=== PATIENT | female | born 1965 | race Caucasian/White ===

== ENCOUNTER 2017-03-06 13:41 | Emergency (ER) | payer BC, OTHER ==
[~2017-03-06] VITALS: Ht 157.5 cm; Wt 88.5 kg
[2017-03-06 14:35] LABS: BASOPHILS # (AUTO) 0.1 (0.0-0.1); BASOPHILS % 0.8 % (0.0-1.0); EOSINOPHILS # (AUTO) 0.3 (0.0-0.4); EOSINOPHILS % 4.2 % (0.0-6.0); HEMATOCRIT 41.4 % (34.2-44.1); HEMOGLOBIN 13.6 g/dL (12.0-16.0); LYMPHOCYTES # (AUTO) 1.5 (1.0-3.2); LYMPHOCYTES % 23.8 % (18.0-39.1); MEAN CORPUSCULAR HEMOGLOBIN 31.4 pg (28-32); MEAN CORPUSCULAR HGB CONC 32.9 g/dL (31-35); MEAN CORPUSCULAR VOLUME 95.6 fL (81-99); MONOCYTES # (AUTO) 0.6 (0.2-0.8); MONOCYTES % 9.8 % (4.4-11.3); NEUTROPHILS # (AUTO) 3.7 (2.1-6.9); NEUTROPHILS % 60.9 % (38.7-80.0); PLATELET COUNT 195 x10e3/uL (140-360); RED BLOOD COUNT 4.33 x10e6/uL (3.6-5.1); RED CELL DISTRIBUTION WIDTH 14.2 % (11.7-14.4)
[2017-03-06 14:39] LABS: INR 0.91; PROTHROMBIN TIME 12.7 seconds (11.9-14.5)
[2017-03-06 14:40] LABS: PARTIAL THROMBOPLASTIN TIME 28.3 seconds (23.8-35.5)
[2017-03-06 14:49] LABS: ALBUMIN/GLOBULIN RATIO 1.1 (0.8-2.0); ANION GAP 10.8 mmol/L (8-16); CALCIUM 9.9 mg/dL (8.4-10.2); CREATININE, SERUM 1.07 mg/dL (0.57-1.11); POTASSIUM 3.8 mmol/L (3.5-5.1)
[2017-03-06 14:55] LABS: CREATINE KINASE MB 0.9 ng/mL (0.00-5.00); TROPONIN I 0.007 ng/mL (0-0.300)
[2017-03-06 15:03] LABS: BILIRUBIN,URINE NEGATIVE (NEGATIVE); CLARITY,URINE CLEAR (CLEAR); COLOR,URINE YELLOW (YELLOW); KETONES,URINE NEGATIVE (NEGATIVE); LEUKOCYTE ESTERASE ,URINE NEGATIVE (NEGATIVE); NITRITE,URINE NEGATIVE (NEGATIVE); PROTEIN,URINE DIPSTICK NEGATIVE (NEGATIVE); URINE UROBILINOGEN 0.2 mg/dL (0.2 - 1)
[2017-03-06 15:09] LABS: RBC,URINE 0-5 /HPF (0-5); WBC,URINE (MAN) 0-5 /HPF (0-5)
[2017-03-06 15:10] LABS: EPITHELIAL CELLS,URINE MODERATE /LPF; MUCUS,URINE MODERATE (RARE)
--- NOTE | 2017-03-06 15:41 | Diagnostic Imaging Report ---
Portable chest x-ray CPT code 50657 INDICATION: Pain and dizziness COMPARISON: 12/06/2009 FINDINGS: Frontal view of the chest obtained at 1445 hours. The cardiac silhouette is top normal in size. The pulmonary vascular marking are normal. The lungs demonstrate stable calcified granuloma in the left lung base. The lungs are hyperinflated. No consolidation. The costophrenic angles are sharp. There is no pneumothorax. The osseous structures are stable. IMPRESSION: 1. Pulmonary hyperinflation suggestive of small airways disease. 2. No acute cardiopulmonary process. Signed by: Dr. Jamal Weber MD on 03/06/2017 3:38 PM
[2017-03-06 17:47] VITALS: BP 125/70
== END 2017-03-06 17:55 | disposition home or self-care (01) ==
LOC: ER 13:41
DX: R07.89 Other chest pain (principal)
CPT/HCPCS: 36415; 71010; 80053; 81001; 82550; 82553; 83880; 84484; 85025; 85610; 85730; 87086; 93005; 99283

== ENCOUNTER 2017-04-26 01:07 | Emergency (ER) | payer BC ==
[~2017-04-26] VITALS: Ht 157.5 cm; Wt 88.5 kg
--- OUTSIDE RECORDS SUMMARY | 2017-04-26 01:09 | XMS REPORT ---
Author Author [facility] Address Unknown Phone Unavailable Care Team Providers Care Phthalic Acid Purifier Name Role Phone KARLO HOWARD Unavailable Unavailable Problems This patient has no known problems. Allergies, Adverse Reactions, Alerts This patient has no known allergies or adverse reactions. Medications This patient has no known medications. Results Test Description Test Time Test Comments Text Results Atomic Results Result Comments CHEST SINGLE (NOT PORTABLE) [address] [address] Patient Name: PRITI GARCIA MR #: [id number] : 1965 Age/Sex: 51/F Req #: [id number] Adm Physician: Ordered by: KARLO HOWARD MD Report #: [id number] Location: ER Room/Bed: Procedure: [id number] DX/CHEST SINGLE (NOT PORTABLE) Exam Date: 03/06/17 Exam Time: 1440 REPORT STATUS: Signed Portable chest x-ray CPT code 16553 INDICATION: Pain and dizziness COMPARISON: 12/06/2009 FINDINGS: Frontal view of the chest obtained at 1445 hours. The cardiac silhouette is top normal in size. The pulmonary vascular marking are normal. The lungs demonstrate stable calcified granuloma in the left lung base. The lungs are hyperinflated. No consolidation. The costophrenic angles are sharp. There is no pneumothorax. The osseous structures are stable. IMPRESSION: 1. Pulmonary hyperinflation suggestive of small airways disease. 2. No acute cardiopulmonary process. Signed by: Dr. Rosy Juarez MD on 03/06/2017 3 :38 PM Dictated By: ROSY JUAREZ MD 1538 Transcribed By: ORION on 03/06/17 1538 COPY TO: KARLO HOWARD MD
[2017-04-26] MEDS ORDERED: SODIUM CHLORIDE 0.9% 1000ML 1,000 ML IV STA (01:46)
[2017-04-26] MEDS ORDERED: PANTOPRAZOLE 40 MG 10ML VIAL IV STA (01:46)
[2017-04-26] MEDS ORDERED: MORPHINE SULFATE 2 MG/ML SYR IV STA ×2 (01:46→05:23)
[2017-04-26] MEDS ORDERED: ONDANSETRON HCL INJ 2 MG/ML VIAL IV STA ×2 (01:46→05:23)
[2017-04-26 01:59] LABS: BASOPHILS # (AUTO) 0.1 (0.0-0.1); BASOPHILS % 0.6 % (0.0-1.0); EOSINOPHILS # (AUTO) 0.3 (0.0-0.4); EOSINOPHILS % 2.9 % (0.0-6.0); HEMATOCRIT 44.8 % (34.2-44.1); HEMOGLOBIN 14.9 g/dL (12.0-16.0); LYMPHOCYTES # (AUTO) 1.6 (1.0-3.2); MEAN CORPUSCULAR HEMOGLOBIN 31.1 pg (28-32); MEAN CORPUSCULAR HGB CONC 33.3 g/dL (31-35); MEAN CORPUSCULAR VOLUME 93.5 fL (81-99); MONOCYTES # (AUTO) 0.7 (0.2-0.8); MONOCYTES % 7.3 % (4.4-11.3); NEUTROPHILS # (AUTO) 7.1 (2.1-6.9); NEUTROPHILS % 72.8 % (38.7-80.0); PLATELET COUNT 244 x10e3/uL (140-360); RED BLOOD COUNT 4.79 x10e6/uL (3.6-5.1)
[2017-04-26 02:08] LABS: INR 3.58; PROTHROMBIN TIME 33.6 seconds (11.9-14.5)
[2017-04-26 02:09] LABS: PARTIAL THROMBOPLASTIN TIME 52.8 seconds (23.8-35.5)
[2017-04-26 02:20] LABS: ALBUMIN 4.3 g/dL (3.5-5.0); ALBUMIN/GLOBULIN RATIO 1.1 (0.8-2.0); ANION GAP 14.3 mmol/L (8-16); CALCIUM 10.2 mg/dL (8.4-10.2); CREATININE, SERUM 0.99 mg/dL (0.57-1.11); POTASSIUM 4.3 mmol/L (3.5-5.1)
[2017-04-26 02:23] LABS: BILIRUBIN,URINE NEGATIVE (NEGATIVE); KETONES,URINE NEGATIVE (NEGATIVE); LEUKOCYTE ESTERASE ,URINE NEGATIVE (NEGATIVE); NITRITE,URINE NEGATIVE (NEGATIVE); URINE UROBILINOGEN 0.2 mg/dL (0.2 - 1)
[2017-04-26 02:24] LABS: CLARITY,URINE SL CLOUDY (CLEAR); COLOR,URINE YELLOW (YELLOW); PROTEIN,URINE DIPSTICK 1+ (NEGATIVE)
[2017-04-26 02:26] LABS: CREATINE KINASE MB 1.9 ng/mL (0-5.0)
[2017-04-26 02:33] LABS: BACTERIA,URINE MODERATE /HPF; EPITHELIAL CELLS,URINE FEW /LPF; RBC,URINE >50 /HPF (0-5)
--- NOTE | 2017-04-26 02:42 | Diagnostic Imaging Report ---
EXAMINATION: CHEST SINGLE (PORTABLE) INDICATION: Abdominal pain. COMPARISON: 03/06/2017 FINDINGS: TUBES and LINES: None. LUNGS: Lungs are well inflated. Calcified granuloma in the left lung base There is no evidence of pneumonia or pulmonary edema. PLEURA: No pleural effusion or pneumothorax. HEART AND MEDIASTINUM: The cardiomediastinal silhouette is unremarkable. BONES AND SOFT TISSUES: No acute osseous lesion. Soft tissues are unremarkable. UPPER ABDOMEN: No free air under the diaphragm. IMPRESSION: No acute thoracic abnormality. Signed by: Dr. Peter Zaman M.D. on 04/26/2017 2:38 AM
--- NOTE | 2017-04-26 04:20 | Diagnostic Imaging Report ---
EXAM: CT Abdomen and Pelvis WITH contrast INDICATION: Right upper quadrant abdominal pain, vomiting, suspected small bowel obstruction. COMPARISON: None. TECHNIQUE: Abdomen and pelvis were scanned utilizing a multidetector helical scanner from the lung base to the pubic symphysis after administration of IV contrast. Coronal and sagittal reformations were obtained. Routine protocol was performed. Scan was performed when during portal venous phase. IV CONTRAST: 100 mL of Isovue-370 ORAL CONTRAST: Water RADIATION DOSE: Total DLP: 712.04 mGy*cm Estimated effective dose: (DLP x 0.015 x size factor) mSv COMPLICATIONS: None FINDINGS: LINES and TUBES: None. LOWER THORAX: Unremarkable HEPATOBILIARY: Focal hypodensity involving the right lobe of the liver is indeterminate. No biliary ductal dilation. GALLBLADDER: No radio-opaque stones or sludge. No wall thickening. SPLEEN: No splenomegaly. PANCREAS: No focal masses or ductal dilatation. ADRENALS: No adrenal nodules KIDNEYS/URETERS: Kidneys enhance symmetrically. No hydronephrosis. Single 1.1 cm left renal angiomyolipoma. 2 mm stone in the inferior renal collecting system of the left kidney. GI TRACT: No abnormal distention, wall thickening, or evidence of bowel obstruction. Appendix is not clearly identified. There is however no fat stranding or adenopathy in the right lower quadrant to suggest appendicitis. PELVIC ORGANS/BLADDER: Unremarkable. LYMPH NODES: No lymphadenopathy. VESSELS: Unremarkable. PERITONEUM / RETROPERITONEUM: No free air or fluid. BONES: Unremarkable. SOFT TISSUES: Unremarkable. IMPRESSION: 1. No evidence of bowel obstruction. 2. Left renal angiomyolipoma measuring 1 cm in diameter. 3. 2 mm stone in the inferior renal collecting system of the left kidney Signed by: Dr. Peter Zaman M.D. on 04/26/2017 4:16 AM
[2017-04-26] MEDS ORDERED: SODIUM CHLORIDE 0.9% 50ML 50 ML ONE (04:21)
[2017-04-26] MEDS ORDERED: IOPAMIDOL 370 MG/ML 200 ML INFUS..BTL INJ ONE (04:22)
[2017-04-26] MEDS ORDERED: CEFTRIAXONE SOD 1 GM VIAL IV STA (05:09)
== END 2017-04-26 06:10 | disposition home or self-care (01) ==
LOC: ER 01:07
DX: N39.0 Urinary tract infection, site not specified (principal); N30.01 Acute cystitis with hematuria; R10.13 Epigastric pain; R10.11 Right upper quadrant pain; I48.91 Unspecified atrial fibrillation; Z79.01 Long term (current) use of anticoagulants; T45.515A Adverse effect of anticoagulants, initial encounter
CPT/HCPCS: 36415; 71045; 74177; 80053; 81001; 82150; 82550; 82553; 83605; 83690; 83735; 84484; 85025; 85610; 85730; 87086; 99284; J0696; J2270; J2405; J7030; Q9967

== ENCOUNTER → 2017-04-28 | Outpatient (CLI) | payer BC ==
[~2017-04-28] MED LIST: REGADENOSON 0.4 MG/5 ML SYR IV ONE
--- NOTE | 2017-05-01 16:59 | Cardiology Report ---
DATE OF STUDY: April 28, 2017 NUCLEAR GATED MYOCARDIAL PERFUSION SCAN USING LEXISCAN This procedure done at [facility] as an outpatient. Nuclear gated myocardial perfusion scan performed as per protocol at the nuclear medicine lab at [facility]. Lexiscan injected 0.4 mg intravenously as stress agent. Myoview injected of 10 mCi for resting protocol, 30 mCi for stress protocol. Left ventricular ejection fraction 60%. No evidence of ischemia or scar noted. Normal study. Job#: [id number]
== END ==
LOC: NM 09:03
PROVIDERS: ATTEND Internal Medicine Cardiovascular Disease
DX: R07.9 Chest pain, unspecified (principal); I48.91 Unspecified atrial fibrillation; R94.31 Abnormal electrocardiogram [ECG] [EKG]
CPT/HCPCS: 78452; 93017; A9502

== ENCOUNTER → 2017-05-30 | Outpatient (CLI) | payer BC ==
[~2017-05-30] MED LIST changes: +IOPAMIDOL 370 MG/ML 200 ML INFUS..BTL INJ ONE; -REGADENOSON 0.4 MG/5 ML SYR IV ONE; +SODIUM CHLORIDE 0.9% 50ML 50 ML ONE
[2017-05-30 09:51] LABS: BLOOD UREA NITROGEN 19 mg/dL (7-26); BUN/CREATININE RATIO 23 (6-25); CREATININE, SERUM 0.83 mg/dL (0.57-1.11); EST GLOMERULAR FILTRATION RATE > 60 ML/MIN (60-)
--- NOTE | 2017-05-30 12:06 | Diagnostic Imaging Report ---
PROCEDURE: CT ABDOMEN \T\ PELVIS W/WO CONTRAST TECHNIQUE: The abdomen and pelvis were scanned utilizing a multidetector helical scanner from the diaphragm to the lesser trochanter before and after the IV administration of 100 cc of Isovue 370. Precontrast, arterial, venous and delayed phases were performed. Coronal and sagittal multiplanar reformations were obtained. COMPARISON: Patients [facility], CT, CT ABDOMEN/PELVIS W, 04/26/2017, 3:12. INDICATIONS: Renal mass FINDINGS: LOWER THORAX: Stable calcified granulomas in bilateral lower lobes (series 7, image 27 and 20). Atherosclerotic calcification of the coronary arteries. Calcified bilateral hilar and mediastinal nodes. HEPATOBILIARY: Ill-defined 1.4 x 1.5 cm hypodense lesion in hepatic segment VII (series 3, image 36), which does not measure simple fluid. This lesion is not imaged on arterial portal venous phase. No other focal hepatic lesions. No biliary ductal dilatation. Punctate gallstone in the dependent portion of the gallbladder neck (series 3, image 62). No wall thickening, or pericholecystic fluid. SPLEEN: No splenomegaly. 1.0 cm splenule. PANCREAS: No focal masses or ductal dilatation. ADRENALS: No adrenal nodules. KIDNEYS/URETERS: No renal or ureteral calculi, hydronephrosis, or obstruction. The previously visualized 2 mm nonobstructing calculus in the inferior pole of the left kidney is not seen on the current exam. Stable 1.1 x 0.9 cm fat containing lesion in the anterior mid to inferior left kidney (series 3, image 74 and series 4, image 85), consistent with an angiomyolipoma. Stable mostly exophytic 5-6 mm fluid density lesion in the inferior pole of the right kidney (best seen on series 7, image 92), which shows no post contrast-enhancement, consistent with a simple cyst. No solid enhancing masses. Good contrast opacification of bilateral renal collecting systems, renal pelves, and left ureter. 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 No filling defects, strictures, or extrinsic compressions. PELVIC ORGANS/BLADDER: Bladder is unremarkable, without focal lesions or wall thickening. Uterus is not visualized. No adnexal masses. PERITONEUM / RETROPERITONEUM: No free air or fluid. LYMPH NODES: No lymphadenopathy. VESSELS: Reflux of contrast into the IVC and hepatic veins during arterial phase. Celiac trunk, superior and inferior mesenteric, and bilateral renal arteries are patent. Portal, superior mesenteric, and splenic veins are patent. GI TRACT: Visualized bowel shows no dilation or obstruction. BONES AND SOFT TISSUES: No aggressive lytic lesions. Degenerative disc changes L4-L5, slight leftward curvature of the lower lumbosacral spine, which may be positional. 2.8 x 2.0 x 2.4 cm fat containing anterior midline abdominal wall hernia (series 4, image 82 and sagittal precontrast image 79). IMPRESSION: 1. Stable 1.1 cm left renal angiomyolipoma. No further diagnostic or followup imaging is indicated for this benign lesion. Stable 5-6 mm right lower pole simple cyst. No other focal lesions are identified. 2. No renal, ureteral, or bladder calculi. No hydronephrosis or obstruction. Previously visualized 2 mm nonobstructing calculus in the inferior pole of the left kidney is not seen in the current exam. 3. 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 Ill-defined 1.5 cm hypodense lesion in hepatic segment VII does not measure simple fluid, is partially imaged, and remains indeterminate. This may represent a mildly complex hepatic cyst. Contrast-enhanced abdominal MRI with liver mass protocol would be helpful for further evaluation. 3. Cholelithiasis, without CT evidence of cholecystitis. Ever Stubbs M.D. Dictated by: Ever Stubbs M.D. on 05/30/2017 at 12:07 Electronically approved by: Ever Stubbs M.D. on 05/30/2017 at 12:07
== END ==
LOC: CT 09:12
PROVIDERS: ATTEND Urology
DX: N20.0 Calculus of kidney (principal); K80.20 Calculus of gallbladder without cholecystitis without obstruction
CPT/HCPCS: 36415; 74178; 82565; 84520; Q9967

== ENCOUNTER → 2017-06-12 | Outpatient (CLI) | payer BC ==
[~2017-06-12] MED LIST changes: +GADOBENATE DIMEGLUMINE 1 ML IV ONE; -IOPAMIDOL 370 MG/ML 200 ML INFUS..BTL INJ ONE; -SODIUM CHLORIDE 0.9% 50ML 50 ML ONE
--- NOTE | 2017-06-12 11:24 | Diagnostic Imaging Report ---
PROCEDURE: MRI ABDOMEN WOW TECHNIQUE: Multisequence, multiplanar MRI of the abdomen was performed before and after the intravenous administration of 18 mL of MultiHance gadolinium based contrast. T1 and T2 weighted images were performed with and without fat saturation. Dynamic coronal postcontrast, 3-D GRE LAVA images were obtained. Coronal T2 SSFSE and FIESTA images were obtained. Diffusion weighted images. COMPARISON: None. INDICATIONS: Abdomen pain FINDINGS: LOWER THORAX: Unremarkable. LIVER: There is a 1.2 cm a lesion in the hepatic segment VII (series 11, image 160) with relative hypoenhancement on all phases.. There is no: On T2-weighted images. There is no loss of signal on opposed phase images. No diffusion restriction. No other focal hepatic lesions. BILIARY: No ductal dilatation or filling defect. No gallbladder wall thickening. The small gallstone visualized on previous CT is barely visualized on today's examination (series 2, image 25). PANCREAS: No mass or ductal dilatation. SPLEEN: No splenomegaly. ADRENALS: No nodules. KIDNEYS: No hydronephrosis. A 1.0 cm angiomyolipoma in the interpolar region of the left kidney (series 6, image 32) is unchanged. Other tiny, non-enhancing, T2 hyperintense lesions in both kidneys are unchanged and likely represent cysts. PERITONEUM / RETROPERITONEUM: No upper abdominal free fluid. LYMPH NODES: No upper abdominal lymphadenopathy. VESSELS: Unremarkable. BONES AND SOFT TISSUES: Midline laparotomy scar. IMPRESSION: A 1.2 cm right hepatic lobe lesion is stable since 05/01/2017, but was not seen in 2010. This remains indeterminate on this examination. Assuming there is no history of malignancy or chronic hepatitis, this is more likely benign. Recommend followup MRI in 3-6 months to ensure stability. Dictated by: Zhou Cuellar M.D. on 06/12/2017 at 11:26 Electronically approved by: Zhou Cuellar M.D. on 06/12/2017 at 11:26
== END | disposition home or self-care (01) ==
LOC: MRI 07:29
PROVIDERS: ATTEND Internal Medicine Cardiovascular Disease
DX: K76.9 Liver disease, unspecified (principal)
CPT/HCPCS: 74183

== ENCOUNTER 2017-11-22 15:24 | Emergency (ER) | payer BC ==
[~2017-11-22] VITALS: Ht 157.5 cm; Wt 88.5 kg
--- NOTE | 2017-11-22 17:11 | Diagnostic Imaging Report ---
LEFT ANKLE - 3 VIEWS HISTORY: Fall, pain COMPARISON: None available. FINDINGS: Bones: No acute displaced fracture. Osseous alignment is within normal limits. Joints: The joint spaces are well-maintained. Soft tissues: The soft tissues appear unremarkable. IMPRESSION: No acute radiographic abnormality. Signed by: Dr. Steven Faria D.O., M.M.M. on 11/22/2017 5:06 PM
--- NOTE | 2017-11-22 17:11 | Diagnostic Imaging Report ---
RIGHT ANKLE - 3 VIEWS HISTORY: Fell, pain COMPARISON: None available. FINDINGS: Bones: No acute displaced fracture. Osseous alignment is within normal limits. Joints: The joint spaces are well-maintained. Soft tissues: The soft tissues appear unremarkable. IMPRESSION: No acute radiographic abnormality. Signed by: Dr. Steven Faria D.O., M.M.M. on 11/22/2017 5:07 PM
[2017-11-22 17:56] VITALS: BP 129/83
== END 2017-11-22 18:02 | disposition home or self-care (01) ==
LOC: ER 15:24
DX: S93.492A Sprain of other ligament of left ankle, initial encounter (principal); S93.491A Sprain of other ligament of right ankle, initial encounter; X50.1XXA Overexertion from prolonged static or awkward postures, initial encounter; Y92.008 Other place in unspecified non-institutional (private) residence as the place of occurrence of the external cause
CPT/HCPCS: 99283